=== PATIENT | female | born 1955 | race Two or more races ===

== ENCOUNTER 2019-11-04 00:39 | Emergency (ER) | payer OTHER ==
[~2019-11-04] VITALS: Ht 157.5 cm; Wt 109.8 kg
[~2019-11-04 00:39] MED LIST: CATAFLAM50 MG PO; ORPH100T PO
[2019-11-04] MEDS ORDERED: SYNTHROID50 MCG (00:50)
[2019-11-04] MEDS ORDERED: ADULT LOW DOSE81 M1 PO (11:32)
[2019-11-04] MEDS ORDERED: CLONAZEPAM0.5 MG PO (11:32)
== END 2019-11-04 13:22 | disposition home or self-care (01) ==
LOC: ER 00:39
DX: G25.89 Other specified extrapyramidal and movement disorders (principal); F41.1 Generalized anxiety disorder; F41.0 Panic disorder [episodic paroxysmal anxiety]; F32.89 Other specified depressive episodes